=== PATIENT | male | born 1950 | race Two or more races ===

== ENCOUNTER → 2024-05-25 | Outpatient (CLI) | payer MEDICARE, MEDICAID, SELFPAY ==
[2024-05-25 09:48] LABS: Basophils # (Auto) 0.1 Thou/mm3 (0.0-0.2); Basophils % (Auto) 1 % (0-2.5); Eosinophils # (Auto) 0.2 Thou/mm3 (0.0-0.5); Eosinophils % (Auto) 3 % (0-10); Hematocrit 43.4 % (41.0-53.0); Hemoglobin 14.4 g/dL (13.5-16.0); Immature Granulocytes % (Auto) 0 % (0-0); Immature Granulocytes Auto 0.02 Thou/mm3 (0.00-0.00); Lymphocytes # (Auto) 2.7 Thou/mm3 (1.0-4.8); Lymphocytes % (Auto) 31 % (10-50); Mean Corpuscular HGB Conc 33.2 g/dl (31.0-37.0); Mean Corpuscular Hemoglobin 29.4 pg (25.0-35.0); Mean Corpuscular Volume 89 fL (80-100); Monocytes # (Auto) 0.5 Thou/mm3 (0.0-0.8); Monocytes % (Auto) 6 % (0-12); Neutrophils # (Auto) 5.3 Thou/mm3 (1.8-7.7); Neutrophils % (Auto) 60 % (37-80); Nucleated Red Blood Cell % 0 /100 WBC (0); Platelet Count 196 Thou/mm3 (140-440); RDW Standard Deviation 48.1 fL (35.1-43.9); White Blood Count 8.9 Thou/mm3 (3.8-10.6)
[2024-05-25 10:00] LABS: Alanine Aminotransferase 17 U/L (10-49); Albumin, Serum 4.4 gm/dL (3.4-4.8); Albumin/Globulin Ratio 1.9 (1.2-2.2); Alkaline Phosphatase 133 U/L (46-116); Anion Gap 9 (7-16); Aspartate Amino Transferase 15 U/L (0-34); BUN/Creatinine Ratio 17 Ratio (12-20); Bilirubin,Total 1.3 mg/dL (0.3-1.2); Blood Urea Nitrogen 17 mg/dL (9-23); Calcium 9.5 mg/dL (8.3-10.6); Calcium (Corrected) 9.5 mg/dL (8.5-10.1); Carbon Dioxide 24.2 mMol/L (20.0-31.0); Chloride 108 mMol/L (98-107); Globulin 2.3 gm/dL (2.3-3.5); Glucose 82 mg/dL (74-106); LDH (Lactate Dehydrogenase) 118 U/L (120-246); Osmolality,Calculated 281 (275-295); Potassium 4.1 mMol/L (3.4-5.1); Sodium 141 mMol/L (136-145); Total Protein 6.7 gm/dL (5.7-8.2); eGFR > 60 See Note
[2024-05-25 10:06] LABS: Sed Rate (ESR) 12 mm/hr (0-20)
== END | disposition home or self-care (01) ==
PROVIDERS: PCP Family Medicine; Referring Provider Nurse Practitioner Family; Visit Provider Nurse Practitioner Family
DX: C85.83 Other specified types of non-Hodgkin lymphoma, intra-abdominal lymph nodes (principal)
CPT/HCPCS: 36415; 80053; 83615; 85025; 85652

== ENCOUNTER 2024-05-31 15:01 | Outpatient (RCR) | payer MEDICARE, MEDICAID, SELFPAY | END 2024-06-05 23:59 | disposition home or self-care (01) | LOC: SCTC 15:01 | PROVIDERS: PCP Family Medicine; Referring Provider Family Medicine; Visit Provider Nurse Practitioner Family | DX: C83.33 Diffuse large B-cell lymphoma, intra-abdominal lymph nodes (principal); R10.9 Unspecified abdominal pain; I10 Essential (primary) hypertension; E03.9 Hypothyroidism, unspecified | CPT/HCPCS: 99212; G0463 ==

== ENCOUNTER → 2024-08-27 | Outpatient (CLI) | payer MEDICARE, MEDICAID, SELFPAY ==
[2024-08-27 10:37] LABS: Basophils # (Auto) 0.1 Thou/mm3 (0.0-0.2); Basophils % (Auto) 1 % (0-2.5); Eosinophils # (Auto) 0.2 Thou/mm3 (0.0-0.5); Eosinophils % (Auto) 2 % (0-10); Hematocrit 45.9 % (41.0-53.0); Hemoglobin 15.4 g/dL (13.5-16.0); Immature Granulocytes % (Auto) 0 % (0-0); Immature Granulocytes Auto 0.03 Thou/mm3 (0.00-0.00); Lymphocytes # (Auto) 2.8 Thou/mm3 (1.0-4.8); Lymphocytes % (Auto) 30 % (10-50); Mean Corpuscular HGB Conc 33.6 g/dl (31.0-37.0); Mean Corpuscular Hemoglobin 29.3 pg (25.0-35.0); Mean Corpuscular Volume 87 fL (80-100); Monocytes # (Auto) 0.5 Thou/mm3 (0.0-0.8); Monocytes % (Auto) 6 % (0-12); Neutrophils # (Auto) 5.6 Thou/mm3 (1.8-7.7); Neutrophils % (Auto) 62 % (37-80); Nucleated Red Blood Cell % 0 /100 WBC (0); Platelet Count 201 Thou/mm3 (140-440); RDW Standard Deviation 42.5 fL (35.1-43.9); Red Blood Count 5.26 Miln/mm3 (4.50-5.90); White Blood Count 9.2 Thou/mm3 (3.8-10.6)
[2024-08-27 10:48] LABS: Alanine Aminotransferase 12 U/L (10-49); Albumin, Serum 4.3 gm/dL (3.4-4.8); Albumin/Globulin Ratio 1.8 (1.2-2.2); Alkaline Phosphatase 132 U/L (46-116); Anion Gap 9 (7-16); Aspartate Amino Transferase 13 U/L (0-34); BUN/Creatinine Ratio 12 Ratio (12-20); Bilirubin,Total 1.2 mg/dL (0.3-1.2); Blood Urea Nitrogen 11 mg/dL (9-23); Calcium 9.5 mg/dL (8.3-10.6); Calcium (Corrected) 9.5 mg/dL (8.5-10.1); Carbon Dioxide 23.9 mMol/L (20.0-31.0); Chloride 106 mMol/L (98-107); Creatinine (Component) 0.9 mg/dL (0.6-1.3); Globulin 2.4 gm/dL (2.3-3.5); Glucose 88 mg/dL (74-106); Osmolality,Calculated 275 (275-295); Potassium 4.3 mMol/L (3.4-5.1); Sodium 139 mMol/L (136-145); Total Protein 6.7 gm/dL (5.7-8.2); eGFR > 60 See Note
== END | disposition home or self-care (01) ==
LOC: SCTO 09:30
PROVIDERS: PCP Nurse Practitioner Family; Referring Provider Nurse Practitioner Family; Visit Provider Nurse Practitioner Family
DX: C85.83 Other specified types of non-Hodgkin lymphoma, intra-abdominal lymph nodes (principal)
CPT/HCPCS: 36415; 80053; 85025

== ENCOUNTER → 2024-09-01 | Outpatient (CLI) | payer MEDICARE, MEDICAID, SELFPAY ==
--- NOTE | 2024-09-01 09:30 | XR_ITS ---
Examination: CT abdomen with intravenous contrast CT pelvis with intravenous contrast 2-D coronal reconstructions 2-D sagittal reconstructions Date and time of exam:September 01, 2024 0954 hrs. Comparison PET/CT scan November 18, 2023 Indications: Diagnosis Hodgkin's lymphoma 2 years ago, restaging, onset generalized abdominal pain beginning 2 weeks ago. CTDI: vol (mGy) 5.01 DLP: (mGycm) 259 Technique: Multiple axial sections of the abdomen and pelvis have been obtained. 64 slice high-resolution scanner used. 3 mm axial sections have been obtained, post intravenous injection 60 cc [id number] 2-D sagittal, coronal reconstructions obtained. Low dose protocols were performed. One or more of the following dose reduction techniques were used; automated exposure control, adjustment of the mA and/or KV according to patient size, use of iterative reconstruction technique. Findings: 4 mm pulmonary nodule right lower lobe No focal liver or splenic lesion Suspicious for tiny gallstones Suspicious for edema around the pancreas 29 mm anterior mesenteric zia mass No bowel obstruction Normal appendix No diverticulitis Intact urinary bladder Transverse prostate dimension 5.0 cm Moderate osteopenia Impression: 4 mm pulmonary nodule right lower lobe, consider CT chest without contrast follow-up Suspicious for edema around the pancreas 29 mm nodule anterior mesenteric mass, consider repeat PET CT scan follow-up
== END | disposition home or self-care (01) ==
PROVIDERS: PCP Family Medicine; Referring Provider Nurse Practitioner Family; Visit Provider Nurse Practitioner Family
DX: R91.8 Other nonspecific abnormal finding of lung field (principal); C85.83 Other specified types of non-Hodgkin lymphoma, intra-abdominal lymph nodes
CPT/HCPCS: 74177; A4649; Q9967

== ENCOUNTER 2024-09-06 10:04 | Outpatient (RCR) | payer MEDICARE, MEDICAID, SELFPAY | END 2024-10-04 23:59 | disposition home or self-care (01) | LOC: SCTC 10:04 | PROVIDERS: PCP Family Medicine; Referring Provider Family Medicine; Visit Provider Nurse Practitioner Family | DX: C83.33 Diffuse large B-cell lymphoma, intra-abdominal lymph nodes (principal); R91.1 Solitary pulmonary nodule; Z92.21 Personal history of antineoplastic chemotherapy | CPT/HCPCS: 99212; G0463 ==

== ENCOUNTER → 2024-09-20 | Outpatient (CLI) | payer MEDICARE, MEDICAID, SELFPAY ==
--- NOTE | 2024-09-20 13:00 | XR_ITS ---
Examination: CT chest, without intravenous contrast. Sagittal and coronal 2-D reconstructions. Exam date and time: September 20, [address] chest abdomen pelvis January 02, 2023 INDICATIONS: Diagnosis non-Hodgkin's lymphoma 2 years ago, 7 mm pulmonary nodule right lower lobe CT chest January 02, 2023, 4 mm pulmonary nodule right lower lobe on CT abdomen September 01, 2024 CTDI:vol (mGy) 8.48 DLP: (mGycm) 271 Technique: Multiple 3.0 mm axial sections of the chest to been obtained. Bone and lung density settings are obtained. Sagittal and coronal 2-D reconstructions have been obtained. Low dose protocols were performed. One or more of the following dose reduction techniques were used; automated exposure control, adjustment of the mA and/or KV according to patient size, use of iterative reconstruction technique. Findings: No thoracic aortic aneurysmal dilatation Pulmonary artery segments are not enlarged. No interval paratracheal tracheobronchial or bronchopulmonary adenopathy Stable 6 mm pulmonary nodule right lower lobe No new pulmonary nodules No interval pneumonia or pulmonary edema No visualized liver or splenic lesion Significant osteopenia IMPRESSION: Stable 6 mm pulmonary nodule right lower lobe compared to CT chest January 02, 2023 No new pulmonary nodules
== END | disposition home or self-care (01) ==
PROVIDERS: Referring Provider Nurse Practitioner Family; Visit Provider Nurse Practitioner Family
DX: R91.1 Solitary pulmonary nodule (principal); C85.83 Other specified types of non-Hodgkin lymphoma, intra-abdominal lymph nodes
CPT/HCPCS: 71250

== ENCOUNTER → 2024-10-05 | Outpatient (CLI) | payer MEDICARE, MEDICAID, SELFPAY ==
--- NOTE | 2024-10-05 14:45 | XR_ITS ---
EXAMINATION: PET/CT FUSION SKULL TO THIGH EXAM DATE AND TIME: October 05, 2024 1544 hours Comparison November 18, 2023, April 10, 2023, CT chest September 20, 2024, CT abdomen pelvis September 01, 2024 INDICATIONS: Diagnosis non-Hodgkin's lymphoma restaging post treatment, CT abdomen September 01, 2024 29 mm anterior mesenteric mass CTDI:vol (mGy) 3.36 DLP: (mGycm) 307 PROCEDURE: 17 mCi FDG was administered intravenously To allow for distribution and uptake of radiotracer, the patient was allowed to rest quietly in a shielded room. Imaging was performed on an integrated 16-slice PET/CT scanner, with scanning from the skull base to the mid thigh. Serum blood glucose at the time of the injection was measured 84 mg/dL. CT scanning was performed without oral or intravenous contrast material. FINDINGS: Head and Neck: There is no zia hypermetabolism in the neck. The visualized portions of the brain are normal in appearance on CT. Chest: There is no zia hypermetabolism in the chest. Stable 4 mm pulmonary nodule right lower lobe Abdomen and Pelvis: Interval hypermetabolic mass in the anterior mesentery, 27 x 20 mm Musculoskeletal: Marrow uptake is within normal range. IMPRESSION: Interval 27 x 20 mm hypermetabolic anterior mesenteric mass compared to the PET/CT scan November 18, 2023, this mass is amenable to CT-guided percutaneous biopsy as clinically warranted
== END | disposition home or self-care (01) ==
PROVIDERS: Referring Provider Nurse Practitioner Family; Visit Provider Nurse Practitioner Family
DX: C85.83 Other specified types of non-Hodgkin lymphoma, intra-abdominal lymph nodes (principal)
CPT/HCPCS: 78815; A9552

== ENCOUNTER 2024-10-13 09:49 | Outpatient (RCR) | payer MEDICARE, MEDICAID, SELFPAY | END 2024-11-03 23:59 | disposition home or self-care (01) | LOC: SCTC 09:49 | PROVIDERS: PCP Family Medicine; Referring Provider Nurse Practitioner Family; Visit Provider Nurse Practitioner Family | DX: C83.33 Diffuse large B-cell lymphoma, intra-abdominal lymph nodes (principal); R91.1 Solitary pulmonary nodule; R19.09 Other intra-abdominal and pelvic swelling, mass and lump; I10 Essential (primary) hypertension; E03.9 Hypothyroidism, unspecified | CPT/HCPCS: 99212; G0463 ==

== ENCOUNTER 2024-11-09 08:16 | Outpatient (CLI) | payer MEDICARE, MEDICAID, SELFPAY ==
[2024-11-05 09:53] VITALS: BMI 26.7
[2024-11-08 09:23] LABS: Basophils # (Auto) 0.1 Thou/mm3 (0.0-0.2); Basophils % (Auto) 1 % (0-2.5); Eosinophils # (Auto) 0.4 Thou/mm3 (0.0-0.5); Eosinophils % (Auto) 4 % (0-10); Hematocrit 42.5 % (41.0-53.0); Hemoglobin 14.5 g/dL (13.5-16.0); Immature Granulocytes % (Auto) 0 % (0-0); Immature Granulocytes Auto 0.02 Thou/mm3 (0.00-0.00); Lymphocytes # (Auto) 2.9 Thou/mm3 (1.0-4.8); Lymphocytes % (Auto) 31 % (10-50); Mean Corpuscular HGB Conc 34.1 g/dl (31.0-37.0); Mean Corpuscular Hemoglobin 29.2 pg (25.0-35.0); Mean Corpuscular Volume 86 fL (80-100); Monocytes # (Auto) 0.7 Thou/mm3 (0.0-0.8); Monocytes % (Auto) 7 % (0-12); Neutrophils # (Auto) 5.4 Thou/mm3 (1.8-7.7); Neutrophils % (Auto) 57 % (37-80); Nucleated Red Blood Cell % 0 /100 WBC (0); Platelet Count 168 Thou/mm3 (140-440); RDW Standard Deviation 46.5 fL (35.1-43.9); Red Blood Count 4.97 Miln/mm3 (4.50-5.90); White Blood Count 9.5 Thou/mm3 (3.8-10.6)
[2024-11-08 09:33] LABS: INR 0.9 (0.9-1.3); Partial Thromboplastin Time 25.4 Seconds (22.0-36.0); Prothrombin Time 10.3 Seconds (9.0-12.2)
[2024-11-08 09:34] LABS: Blood Urea Nitrogen 15 mg/dL (9-23); Creatinine (Component) 0.9 mg/dL (0.6-1.3); Estimated Creatinine Clearance 58.4 mL/min (>60); eGFR > 60 See Note
[2024-11-09] VITALS (11 sets, daily range): BP systolic 124–154; BP diastolic 67–87; PULSE 53–64; RESP 12–20; TEMP 36.1–36.8; O2SAT 96–98
--- NOTE | 2024-11-09 08:30 | XR_ITS ---
Examination: CT-guided percutaneous biopsy anterior mesenteric mass CT abdomen without intravenous contrast Date and time of procedure: November 09, 2024 0942 hours INDICATIONS: PET/CT scan October 05, 2024 hypermetabolic anterior mediastinal mass 27 x 20 mm Informed consent provided. A timeout was completed verifying correct patient, procedure, site and positioning. Technique: Axial 3 mm sections were obtained for localization of the anterior mesenteric mass Appropriate area is marked. The patient's site was prepped and draped in sterile fashion Maximal sterile barrier technique utilized, including hand hygiene Local anesthesia was obtained with 1% lidocaine. Low dose protocols were performed. One or more of the following dose reduction techniques were used; automated exposure control, adjustment of the mA and/or KV according to patient size, use of iterative reconstruction technique. Utilizing CT fluoroscopic guidance 2 core biopsies obtained of the anterior slip anterior mesenteric mass utilizing an 18-gauge core needle Patient appears in stable condition during this procedure. At completion of the procedure, the patient is in satisfactory condition. Estimated blood loss 0 cc Complete pathology report to follow. Impression: Successful CT-guided percutaneous biopsy anterior mesenteric mass
[2024-11-09] MEDS: SODIUM CHLORIDE 0.9% 500 ML 500 ML 20 ML IV (09:35)
[2024-11-09] MEDS: fentaNYL CIT INJ 50 mCg/ML AMP 2ML IVP (10:01)
--- NOTE | 2024-11-09 13:46 | PC.NURSE ---
1020 patient is awake, alert, breathing unlabored, dressing to abdomen dry with no bleeding, report received from Rene FREEMAN, patient to recover for 1 hour. 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
== END 2024-11-09 12:05 | disposition home or self-care (01) ==
PROVIDERS: Radiology Diagnostic Radiology; PCP Nurse Practitioner Family; Referring Provider Nurse Practitioner Family; Visit Provider Nurse Practitioner Family
DX: R19.09 Other intra-abdominal and pelvic swelling, mass and lump (principal); C85.83 Other specified types of non-Hodgkin lymphoma, intra-abdominal lymph nodes; Z01.812 Encounter for preprocedural laboratory examination
CPT/HCPCS: 20206; 36415; 77012; 82565; 84520; 85025; 85610; 85730; J3010; J7040

== ENCOUNTER 2024-11-16 09:12 | Outpatient (RCR) | payer MEDICARE, MEDICAID, SELFPAY | END 2024-12-04 23:59 | disposition home or self-care (01) | LOC: SCTC 09:12 | PROVIDERS: PCP Family Medicine; Referring Provider Nurse Practitioner Family; Visit Provider Nurse Practitioner Family | DX: R19.09 Other intra-abdominal and pelvic swelling, mass and lump (principal); Z71.2 Person consulting for explanation of examination or test findings; C83.33 Diffuse large B-cell lymphoma, intra-abdominal lymph nodes; I10 Essential (primary) hypertension; E03.9 Hypothyroidism, unspecified | CPT/HCPCS: 99212; G0463 ==

== ENCOUNTER 2024-12-22 13:03 | Outpatient (RCR) | payer MEDICARE, MEDICAID, SELFPAY | END 2025-01-03 23:59 | disposition home or self-care (01) | LOC: SCTC 13:03 | PROVIDERS: PCP Family Medicine; Referring Provider Family Medicine; Visit Provider Nurse Practitioner Family | DX: C83.33 Diffuse large B-cell lymphoma, intra-abdominal lymph nodes (principal); Z92.21 Personal history of antineoplastic chemotherapy | CPT/HCPCS: 99212; G0463 ==

== ENCOUNTER 2025-03-09 11:45 | Day surgery (SDC) | payer MEDICARE, MEDICAID, SELFPAY ==
[2025-03-08 13:33] VITALS: BMI 25.3
[2025-03-09] VITALS (11 sets, daily range): BP systolic 98–140; BP diastolic 56–80; PULSE 53–67; RESP 10–18; TEMP 36.3–36.9; O2SAT 96–100; BMI 24.7
[2025-03-09] MEDS: RINGERS LACTATED 1000 ML 1,000 ML 100 ML IV (13:12)
[2025-03-09] MEDS: MIDAZOLAM INJ 1 MG/ML VIAL 2 ML (ASD USE ONLY) 2 MG IVP (13:20)
[2025-03-09] MEDS: fentaNYL CIT INJ 50 mCg/ML AMP 2ML (ASD USE ONLY) IVP (13:22)
== END 2025-03-09 14:10 | disposition home or self-care (01) ==
PROVIDERS: PCP Family Medicine; Referring Provider Surgery; Visit Provider Surgery
PROC: 0DBE8ZX Excision of Large Intestine, Via Natural or Artificial Opening Endoscopic, Diagnostic (ICD-10-PCS; CPT 45380; principal; 2025-03-09 13:00)
DX: Z12.11 Encounter for screening for malignant neoplasm of colon (principal); K57.30 Diverticulosis of large intestine without perforation or abscess without bleeding
CPT/HCPCS: G0121; A4217; A4649; J2250; J3010; J7120

== ENCOUNTER → 2025-04-28 | Outpatient (CLI) | payer MEDICARE, MEDICAID, SELFPAY ==
[2025-04-28 16:49] LABS: Basophils # (Auto) 0.1 Thou/mm3 (0.0-0.2); Basophils % (Auto) 1 % (0-2.5); Eosinophils # (Auto) 0.1 Thou/mm3 (0.0-0.5); Eosinophils % (Auto) 1 % (0-10); Hematocrit 40.1 % (41.0-53.0); Hemoglobin 12.9 g/dL (13.5-16.0); Immature Granulocytes Auto 0.01 Thou/mm3 (0.00-0.00); Lymphocytes # (Auto) 2.1 Thou/mm3 (1.0-4.8); Lymphocytes % (Auto) 35 % (10-50); Mean Corpuscular HGB Conc 32.2 g/dl (31.0-37.0); Mean Corpuscular Hemoglobin 29.0 pg (25.0-35.0); Mean Corpuscular Volume 90 fL (80-100); Monocytes # (Auto) 0.4 Thou/mm3 (0.0-0.8); Monocytes % (Auto) 6 % (0-12); Neutrophils # (Auto) 3.5 Thou/mm3 (1.8-7.7); Neutrophils % (Auto) 57 % (37-80); Nucleated Red Blood Cell # 0.00 Thou/mm3 (0.00-0.00); Nucleated Red Blood Cell % 0 /100 WBC (0); Platelet Count 173 Thou/mm3 (140-440); RDW Standard Deviation 45.7 fL (35.1-43.9); Red Blood Count 4.45 Miln/mm3 (4.50-5.90); White Blood Count 6.2 Thou/mm3 (3.8-10.6)
[2025-04-28 16:59] LABS: Alanine Aminotransferase 16 U/L (10-49); Albumin, Serum 4.4 gm/dL (3.4-4.8); Albumin/Globulin Ratio 2.6 (1.2-2.2); Alkaline Phosphatase 80 U/L (46-116); Anion Gap 13 (7-16); Aspartate Amino Transferase 19 U/L (0-34); BUN/Creatinine Ratio 10 Ratio (12-20); Bilirubin,Total 1.2 mg/dL (0.3-1.2); Blood Urea Nitrogen 12 mg/dL (9-23); Calcium 8.8 mg/dL (8.3-10.6); Calcium (Corrected) 8.8 mg/dL (8.5-10.1); Carbon Dioxide 22.3 mMol/L (20.0-31.0); Chloride 108 mMol/L (98-107); Creatinine (Component) 1.2 mg/dL (0.6-1.3); Globulin 1.7 gm/dL (2.3-3.5); Glucose 85 mg/dL (74-106); LDH (Lactate Dehydrogenase) 134 U/L (120-246); Osmolality,Calculated 283 (275-295); Potassium 3.8 mMol/L (3.4-5.1); Sodium 143 mMol/L (136-145); Total Protein 6.1 gm/dL (5.7-8.2); eGFR > 60 See Note
[2025-05-06 06:33] LABS: Haptoglobin* 92 mg/dL (43-212)
== END | disposition home or self-care (01) ==
LOC: SCTO 15:01
PROVIDERS: PCP Family Medicine; Referring Provider Nurse Practitioner Family; Visit Provider Nurse Practitioner Family
DX: C85.83 Other specified types of non-Hodgkin lymphoma, intra-abdominal lymph nodes (principal)
CPT/HCPCS: 36415; 80053; 83010; 83615; 85025

== ENCOUNTER → 2025-05-03 | Outpatient (CLI) | payer MEDICARE, MEDICAID, SELFPAY ==
--- NOTE | 2025-05-03 11:00 | XR_ITS ---
EXAMINATION: PET/CT FUSION SKULL TO THIGH EXAM DATE AND TIME: May 03, 2025, 11:30 a.m., comparison PET/CT scan October 05, 2024, CT biopsy November 09, 2024, CT chest September 20, 2024, PET/CT scan November 18, 2023 INDICATIONS: Diagnosis lymphoma restaging posttreatment, postbiopsy 27 x 20 mm hypermetabolic anterior mesenteric mass, biopsy on November 09, 2024 CTDI:vol (mGy) 2.91 DLP: (mGycm) 265.38 PROCEDURE: 14.9 mCi FDG was administered intravenously To allow for distribution and uptake of radiotracer, the patient was allowed to rest quietly in a shielded room. Imaging was performed on an integrated 16-slice PET/CT scanner, with scanning from the skull base to the mid thigh. Serum blood glucose at the time of the injection was measured 87 within, located ropeli complex, plate mg/dL. CT scanning was performed without oral or intravenous contrast material. FINDINGS: Head and Neck: There is no zia hypermetabolism in the neck. The visualized portions of the brain are normal in appearance on CT. Chest: There is no zia hypermetabolism in the chest. There are no pulmonary nodules. Abdomen and Pelvis: The anterior mesenteric mass is no longer and measures 19 x 15 mm compared with 27 x 20 mm on October 05, 2024 No interval abdominopelvic lymphadenopathy No hydronephrosis Musculoskeletal: Marrow uptake is within normal range. IMPRESSION: The anterior mesenteric mass, hypermetabolic on the PET/CT scan October 05, 2024 is no longer hypermetabolic This anterior mesenteric mass now measures 19 x 15 mm compared to 27 x 20 mm on PET/CT scan October 05, 2024
== END | disposition home or self-care (01) ==
PROVIDERS: Referring Provider Nurse Practitioner Family; Visit Provider Nurse Practitioner Family
DX: R19.00 Intra-abdominal and pelvic swelling, mass and lump, unspecified site (principal); C85.83 Other specified types of non-Hodgkin lymphoma, intra-abdominal lymph nodes
CPT/HCPCS: 78815; A9552

== ENCOUNTER 2025-05-05 13:19 | Outpatient (RCR) | payer MEDICARE, MEDICAID, SELFPAY | END 2025-05-06 23:59 | disposition home or self-care (01) | LOC: SCTC 13:19 | PROVIDERS: PCP Family Medicine; Referring Provider Nurse Practitioner Family; Visit Provider Nurse Practitioner Family | DX: C83.33 Diffuse large B-cell lymphoma, intra-abdominal lymph nodes (principal); K57.90 Diverticulosis of intestine, part unspecified, without perforation or abscess without bleeding; Z92.21 Personal history of antineoplastic chemotherapy | CPT/HCPCS: 99212; G0463 ==